=== PATIENT | female | born 1950 | race Caucasian/White ===

== ENCOUNTER 2020-01-15 08:12 | Inpatient (IN) | payer MEDICARE ==
[~2020-01-15] VITALS: Ht 172.7 cm; Wt 79.4 kg
[~2020-01-15 08:12] MED LIST: ATIVAN1 MG PO; COZAAR50 M1 PO; OMEPRAZOLE40 MG PO; PROZAC20 MG PO; TRAZODONE150 MG PO
[2020-01-15 08:21] VITALS: BP 141/78
[2020-01-15 08:54] LABS: BASO % 0.5 % (0.0-1.0); EOS # 0.2 10*3/uL (0.0-0.4); EOS % 2.7 % (1.0-4.0); HEMATOCRIT 42.2 % (37.0-47.0); LYMPH % 16.5 % (27.0-41.0); MEAN CELL VOLUME 94.6 fl (81.0-99.0); MEAN CORPUSCULAR HGB 30.3 pg (27.0-31.0); MEAN PLATELET VOLUME 9.6 fl (9.6-12.3); MONO # 0.6 10*3/uL (0.1-1.0); MONO % 10.7 % (3.0-9.0); NEUT # 4.2 10*3/uL (2.3-7.9); NEUT % 69.1 % (47.0-73.0); PLATELET COUNT AUTOMATED 202 10*3/uL (130-400); RED BLOOD COUNT 4.46 10*6/uL (4.10-5.10); RED CELL DISTRI WIDTH 13.9 % (0-14.5)
--- NOTE | 2020-01-15 08:54 | NUR ---
PT REQUESTS TO STAY IN CLOTHING UNTIL ARRIVAL TO INPATIENT ROOM.
[2020-01-15 09:09] LABS: ALBUMIN 3.7 gm/dl (3.1-4.5); ALKALINE PHOSPHATASE 79 U/L (45-117); BUN 6 mg/dl (7-24); CHLORIDE 106 mmol/L (98-107); CREATININE 0.77 mg/dL (0.55-1.02); POTASSIUM 3.5 mmol/L (3.5-5.1); SGOT/AST 41 IU/L (3-35); SGPT/ALT 52 U/L (12-78); SODIUM 139 mmol/L (136-145)
[2020-01-15 09:11] LABS: ETHYL ALCOHOL < 3.0 mg/dl (<3)
[2020-01-15 09:21] LABS: URINE AMPHETAMINES < 1000 (1000ng/ml); URINE BARBITURATES > 200 (200ng/ml); URINE BENZODIAZEPINES > 200 (200ng/ml); URINE CANNABINOIDS (THC) < 50 (50ng/ml); URINE COCAINE < 300 (300ng/ml); URINE METHADONE < 300 (300ng/ml); URINE OPIATES < 300 (300ng/ml)
[2020-01-15 09:22] LABS: URINE PHENCYCLIDINE < 25 (25ng/ml)
[2020-01-15 09:55] VITALS: BP 136/74
--- NOTE | 2020-01-15 10:08 | NUR ---
NAUSEA IMPROVED WITH ZOFRAN DOSE. ADMISSION PENDING.
--- NOTE | 2020-01-15 11:45 | NUR ---
PATIENT MEEETS NEW VISION CRITERIA. PATIENT IS GOING TO FOLLOW UP WITH OUTPATIENT TREATMENT AT [facility]. EYAD STEARNS B.A. ROOF CEMENT AND PAINT MAKER HELPER
[2020-01-15 12:00] VITALS: BP 124/65; BP 133/69
--- NOTE | 2020-01-15 12:00 | NUR ---
A 69, admitted to 5E, under the services of SHENA Mosquera DO with a diagnosis of ETOH DEPENDENCE . Chief complaint is WITHDRAWAL. Patient arrived via stretcher from ER. Monitor applied. Initial assessment completed. Vital signs taken and recorded. SHENA MOSQUERA DO notified of admission to the unit. Orders received. See assessment for past medical history, medications and allergies. Patient and/or family oriented to unit. [facility] visitation policy reviewed. Clothing/patient valuable form completed. HANH CARPENTER
--- NOTE | 2020-01-15 12:51 | NUR ---
CALLED [facility] AND NOTIFIED OF [facility] CONSULT
--- NOTE | 2020-01-15 14:52 | NUR ---
PT REQUESTED AND GIVEN ATIVAN FOR C/O ANXIETY, RESTLESSNESS WILL MONITOR
--- NOTE | 2020-01-15 15:30 | NUR ---
PT STATES THAT ATIVAN HELPED A LITTLE WILL MONITOR
[2020-01-15 16:00] VITALS: BP 144/83
--- NOTE | 2020-01-15 19:45 | NUR ---
IN TO ASSESS PATIENT AT THIS TIME. PATIENT ALERT AND ORIENTED AND PLEASANT AND COOPERATIVE. BREATHING IS EASY AND REGULAR ON ROOM AIR. PATIENT HAS BEEN UP WALKING IN THE HALLS WITH MASK ON. ENCOURAGED PATIENT TO TRY AND STAY IN HER ROOM, BUT PATIENT STATED THAT SHE GETS TOO ANTSY STAYING IN HER ROOM. PATIENT HAS NO COMPLAINTS AT THIS TIME. CALL LIGHT WITHIN REACH, WILL MONITOR
[2020-01-15 20:00] VITALS: BP 127/75
--- NOTE | 2020-01-15 20:14 | NUR ---
PRN ATIVAN/STERILE WATER GIVEN FOR PT COMPLAINTS OF ANXIETY. CALL LIGHT WITHIN REACH, WILL MONITOR
--- NOTE | 2020-01-15 21:00 | NUR ---
PRN ATIVAN EFFECTIVE PER PT
--- NOTE | 2020-01-15 21:39 | NUR ---
PRN MOTRIN GIVEN FOR PT COMPLAINTS OF A MILD HEADACHE RATING IT 6/10. CALL LIGHT WITHIN REACH, WILL MONITOR
--- NOTE | 2020-01-15 22:30 | NUR ---
PRN MOTRIN APPEARS EFFECTIVE, PT SLEEPING
[2020-01-16] VITALS: BP 134/81
[2020-01-16 08:00] VITALS: BP 119/66
--- NOTE | 2020-01-16 08:49 | NUR ---
PT MEDICATED WITH IV ATIVAN AT THIS TIME PER ORDER FOR COMPLAINTS OF ANXIETY. WILL MONITOR.
--- NOTE | 2020-01-16 08:59 | NUR ---
PT C/O HEADACHE AT THIS TIME AND MEDICATED WITH IBUPROFEN PER ORDER. WILL MONITOR FOR EFFECTIVENESS.
--- NOTE | 2020-01-16 09:49 | NUR ---
PER PATIENT, ANXIETY HAS LESSENED. COMFORTABLE AT THIS TIME.
--- NOTE | 2020-01-16 09:59 | NUR ---
PER PATIENT, PRN IBUPROFEN HAS BEEN EFFECTIVE.
[2020-01-16 12:00] VITALS: BP 121/76
--- NOTE | 2020-01-16 15:10 | NUR ---
PT C/O ANXIETY & HEADACHE AT THIS TIME AND MEDICATED WITH IV ATIVAN AND PO TYLENOL PER ORDER. WILL MONITOR FOR EFFECTIVENESS.
--- NOTE | 2020-01-16 15:53 | NUR ---
[facility] STAFF IN TO SEE PATIENT. PATIENT STILL WANTS TO FOLLOW UP WITH [facility] FOR OUTPATIENT TREATMENT. EYAD STEARNS B.A. DIVISION CONTROLLER
[2020-01-16 16:00] VITALS: BP 144/93
[2020-01-16] MEDS ORDERED: MIRTAZAPINE15 M2 PO (16:10)
[2020-01-16] MEDS ORDERED: CLONAZEPAM1 MG PO (16:10)
--- NOTE | 2020-01-16 16:10 | NUR ---
PER PATIENT, PRN MEDICATION HAS BEEN EFFECTIVE. MUCH MORE RELAXED AT THIS TIME.
--- NOTE | 2020-01-16 19:55 | NUR ---
24 HR chart check completed.
[2020-01-16 20:00] VITALS: BP 130/82; BP 130/91
--- NOTE | 2020-01-16 20:00 | NUR ---
AMBULATING HALLWAY. NO DISTRESS NOTED. RESPIRATIONS EASY. NO VOICED COMPLAINTS
--- NOTE | 2020-01-16 20:43 | NUR ---
Patient displaying withdrawal symptoms, including: irritability, anxiousness, restlessness and agitation. Scheduled/PRN medications provided, SEE EMAR. Will continue to monitor medication effectiveness.
--- NOTE | 2020-01-16 21:30 | NUR ---
Patient resting. Responding to scheduled medications with fewer complaints of pain and anxiety.
[2020-01-17] VITALS: BP 137/72
--- NOTE | 2020-01-17 | NUR ---
SLEEPING. NO DISTRESS NOTED. RESPIRATIONS EASY. VSS. CALL LIGHT WITHIN REACH
--- NOTE | 2020-01-17 06:15 | NUR ---
Patient resting. Responding to scheduled medications with fewer complaints of pain and anxiety.
[2020-01-17 08:00] VITALS: BP 146/90
--- NOTE | 2020-01-17 11:15 | NUR ---
PT came to nurses station asking about someone to take iv out so she can leave. I asked pt if she was discharged and pt states, "I am discharging myself." Primary Rn notified.
--- NOTE | 2020-01-17 11:21 | NUR ---
Pt signed ama paper and iv removed. Pt states it is just time for me to leave.
--- NOTE | 2020-01-17 11:23 | NUR ---
PATIENT LEAVING AMA AT THIS TIME. HEPLOCK DISCONTINUED. PATIENT AMBULATORY OFF FLOOR. AWARE. CLAMP REMOVER AWARE.
[2020-01-18 08:08] LABS: HEP B CORE AB, IGM Negative (Negative); HEPATITIS B SURFACE AG Negative (Negative); HEPATITIS C VIRUS ANTIBODY 0.1 s/co (0.0-0.9)
== END 2020-01-17 11:23 | disposition left against medical advice (07) | DRG 894 ==
LOC: ED 08:12 → EDHOLD 09:22 → 5E 09:22
PROVIDERS: Emergency Medicine; Registered Nurse; ADMIT Family Medicine
DX: F10.29 Alcohol dependence with unspecified alcohol-induced disorder (principal); E44.1 Mild protein-calorie malnutrition; F33.2 Major depressive disorder, recurrent severe without psychotic features; F10.230 Alcohol dependence with withdrawal, uncomplicated; I10 Essential (primary) hypertension; R73.9 Hyperglycemia, unspecified; R74.0 Nonspecific elevation of levels of transaminase and lactic acid dehydrogenase [LDH]; Y90.9 Presence of alcohol in blood, level not specified; F41.9 Anxiety disorder, unspecified; Z53.29 Procedure and treatment not carried out because of patient's decision for other reasons; Z85.3 Personal history of malignant neoplasm of breast; Z90.49 Acquired absence of other specified parts of digestive tract; Z90.710 Acquired absence of both cervix and uterus; Z90.13 Acquired absence of bilateral breasts and nipples; Z80.1 Family history of malignant neoplasm of trachea, bronchus and lung; Z79.899 Other long term (current) drug therapy; Z68.26 Body mass index [BMI] 26.0-26.9, adult